=== PATIENT | female | born 2000 | race Two or more races ===

== ENCOUNTER 2021-12-10 16:13 | Emergency (ER) | payer OTHER, MEDICAID ==
[~2021-12-10] VITALS: Ht 157.5 cm; Wt 138.0 kg
[2021-12-10 16:33] VITALS: BP 127/80
== END 2021-12-11 02:20 | disposition left against medical advice (07) ==
LOC: ER 16:13
DX: M79.644 Pain in right finger(s) (principal); Z53.21 Procedure and treatment not carried out due to patient leaving prior to being seen by health care provider